=== PATIENT | male | born 1980 | race Two or more races ===

== ENCOUNTER → 2020-05-02 14:00 | Outpatient (BNVA) | payer MEDICARE, MEDICAID, SELFPAY | PROVIDERS: PCP Internal Medicine; Visit Provider Surgery | DX: D36.15 Benign neoplasm of peripheral nerves and autonomic nervous system of abdomen (principal); D36.12 Benign neoplasm of peripheral nerves and autonomic nervous system, upper limb, including shoulder | CPT/HCPCS: 99202 ==

== ENCOUNTER 2020-05-21 07:38 | Day surgery (SDC) | payer MEDICARE, MEDICAID, SELFPAY ==
--- NOTE | 2020-05-14 15:09 | HO.ANESPROP2 ---
HPI - Anesthesia Eval Consult details Narrative: 39yo M for Excision of Neurofibroma of Abdomen & Left Arm x4 PMFSH Past Medical History Medical History Anxiety Depression Elevated blood pressure reading GERD (gastroesophageal reflux disease) High cholesterol Lipoma Family History Family History Father Vertigo Mother Depression Anxiety Diabetes Bipolar 1 disorder Chronic mental illness History of high blood pressure Sister Bipolar 1 disorder Addiction Daughter Autism Maternal Aunt Skin cancer Surgical History Surgical History History of surgery of head History of tonsillectomy Social History Social History Smoking Status: Current every day smoker Tobacco Type: Cigarette Cigarettes Per Day: 10.0 Use of substances other than those prescribed or required for medical reasons: No Advance Directives: No Advance Directives Information Provided: No Advance Directives on File: No Meds Allergies Allergy/AdvReac Type Severity Reaction Status Date / Time latex Allergy Unknown Unknown Verified 05/02/20 14:16 doxycycline [DOXYCYCLINE] AdvReac Intermediate VOMITING, Verified 04/27/20 11:55 PALPATATIONS, Capsule coating on Allergy Unknown nausea and Uncoded 04/17/20 15:01 medications vomiting penicillin Allergy Unknown Unknown Uncoded 04/17/20 15:01 Home Medications Medication Instructions Recorded Confirmed Type omeprazole 20 mg capsule,delayed 20 mg PO DAILY 04/17/20 05/02/20 History release polyethylene glycol 3350 17 17 g PO DAILY 04/17/20 05/02/20 History gram/dose oral powder Exam Exam Date and Time: May 14, 2020 0641 Assessment and Plan Assessment Anesthesia Assessment: Chart Reviewed
[2020-05-16 12:05] VITALS: BMI 32.5
[2020-05-21] VITALS (10 sets, daily range): BP systolic 123–140; BP diastolic 76–90; PULSE 58–82; RESP 16–18; TEMP 36.2–36.6; O2SAT 97–99
[2020-05-21] MEDS: Lactated Ringers 1,000 ML 100 ML IVCONT (08:19)
--- NOTE | 2020-05-21 08:24 | MHC.SHP ---
Pre-Procedural Eval Section A The patient is an INPATIENT: No Changes since office visit: Yes Patient answered all questions; No Cold of Flu in the past 2 weeks, No New Medical Problems and No Changes in Medication The History & Physical has been completed within 30 days and I have reviewed it.: Yes Section B Chief Complaint: Neurofibroma of abdominal wall, Neurofibrom Allergies: Allergies Allergy/AdvReac Type Severity Reaction Status Date / Time latex Allergy Unknown Unknown Verified 05/02/20 14:16 doxycycline [DOXYCYCLINE] AdvReac Intermediate VOMITING, Verified 04/27/20 11:55 PALPATATIONS, Capsule coating on Allergy Unknown nausea and Uncoded 04/17/20 15:01 medications vomiting penicillin Allergy Unknown Unknown Uncoded 04/17/20 15:01 Plan Diagnosis/Plan: Unchanged Patient has been examined and remains a candidate for the planned procedure
[2020-05-21] MEDS: vancomycin HCL 1,000 MG in 0.9 % Sodium Chloride 250 ML 270 MG IV (08:43)
--- NOTE | 2020-05-21 09:26 | PM.OP ---
Brief Operative Note Date of Service: 05/21/20 Pre-op diagnosis: Neurofibromas abdomen x 3 and left arm x 1 Post-op diagnosis: other (Lipoma abdomen x 3, Left arm x 1) Procedure: Excision of lipoma abdomen and left arm x 4 Implants: none Surgeon: Cristino Lainez MD Anesthesia: MAC Polishing Pad Mounter: Ruth Gardner Estimated blood loss (mL): 3 Pathology: other (lipoma x 4) Condition: stable Disposition: PACU
--- NOTE | 2020-05-21 09:28 | P.OP_ITS ---
Operative Note Operative Note Date of Service: 05/21/20 Narrative: Preoperative diagnosis: Fibroma abdomen x3 left arm x1 Postoperative diagnosis: Lipoma abdomen x3, left arm x1 Procedure: Excision of lipoma abdomen x3, left arm x1 Surgeon:Cristino Lainez MD [employer] Cont[employer]mospheric Furnace: JAKE Andino Anesthesia: Mac Indications for procedure: 39-year-old male patient presenting with complaints of painful lumps in the abdomen in arm. He was found to have a palpable small soft tissue mass in the abdomen x3 and left arm x1. Presents for excision. Operative findings patient was found to have soft tissue mass consistent with a lipoma involving the abdomen x3 each measuring approximately 0.5 cm in diameter. Fourth lesion located in the left forearm measured the same size 0.5 cm. All 4 lesions were sent to pathology for further examination. Specimen: Lipoma x4 of abdomen and left arm Complications: None Estimated blood loss: 3 mL Procedure details: Patient was brought to the OR and placed in a supine position. After administering light sedation the patient's abdomen and left arm were prepped with ChloraPrep and draped in a sterile fashion. A surgical time- out was called the consent confirmed. Patient received preoperative antibiotics and Venodyne boots were in place. Local anesthesia consisting of 0.75% Sensorcaine was then infiltrated overall 3 lesions in the abdomen and the 1 lesion in the left arm. Beginning in the right lower quadrant incision was made directly over the palpable lump. This was carried out through subcutaneous tissue. The lump was easily identified just below the dermis. This was sharply dissected from the surrounding subcutaneous tissue and sent to pathology for further examination. Attention was then directed to the right upper quadrant where a 2nd lesion was identified. Incision was made in a transverse fashion directly over the lump. This appeared to be a soft tissue lump again consistent with lipoma. This was excised with the Metzenbaum scissors and sent to pathology for further examination. Third l esion in the left lower quadrant was removed in a similar way with a transverse incision directly over the lesion. Sharp dissection was then used to remove the lesion from the subcutaneous tissue. All 3 lesions were checked for hemostasis and skin closed using a subcuticular 4 0 Polysorb suture. Steri-Strips 2 x 2 gauze and Tegaderm were then applied. A 4th lesion located on the left forearm was then anesthetized with Sensorcaine. A longitudinal incision was made directly over the lesion. The lesion was found just below the dermis. This was then sharply dissected from the surrounding subcutaneous tissue. Lesion was sent to pathology for further examination. Hemostasis was assured using electrocautery. Skin was closed in this lesion using a 4-0 nylon suture x2. Sterile dressings consisting of sterile gauze and Tegaderm were then applied. The patient tolerated the procedure well. Sponge, instrument, needle counts reported as correct. Patient was transferred to PACU in stable condition.
[2020-05-21] MEDS: Ketorolac Tromethamine 15 MG/ML VIAL IVPUSH (09:38)
[2020-05-21] MEDS: ondansetron HCL 4 MG/2 ML VIAL IVPUSH (09:39)
[2020-05-21] MEDS: Acetaminophen 325 MG TABLET 650 MG PO (09:40)
[2020-05-21] MEDS: oxyCODONE HCl Immed Release 5 MG TABLET 10 MG PO (09:40)
[2020-05-21] MEDS: fentaNYL citrate/PF 100 MCG/2 ML VIAL 50 MCG IVPUSH (09:49)
--- NOTE | 2020-05-21 10:56 | HO.POSTANES ---
Post Anesthesia Evaluation Post Anesthesia Evaluation Vital Signs: Vital Signs Temp Pulse Resp BP Pulse Ox 05/21/20 10:25 97.1 F 05/21/20 10:23 61 18 135/90 H 98 05/21/20 10:10 78 18 125/78 98 05/21/20 09:55 58 18 123/85 97 05/21/20 09:49 18 05/21/20 09:40 65 18 134/90 H 97 05/21/20 09:35 67 18 134/90 H 97 05/21/20 09:30 65 16 140/88 H 98 05/21/20 09:25 97.9 F 82 16 139/76 99 05/21/20 08:11 97.5 F 76 16 136/89 97 Anesthesia: General (tiva) Mental Status: Awake Pain Control: Satisfactory Nausea/Vomiting: None Hydration: Adequate Anesthesia-Related Issues: No Anes. Related Issues
== END 2020-05-21 23:59 | disposition home or self-care (01) ==
PROVIDERS: Visit Provider Surgery
PROC: (CPT 11400; principal; 2020-05-21 08:30)
DX: D17.1 Benign lipomatous neoplasm of skin and subcutaneous tissue of trunk (principal); D17.22 Benign lipomatous neoplasm of skin and subcutaneous tissue of left arm; Z88.0 Allergy status to penicillin; Z91.040 Latex allergy status; Z88.8 Allergy status to other drugs, medicaments and biological substances
CPT/HCPCS: 11400 ×3; 88304; J1885; J2250; J2405; J3010; J3370

== ENCOUNTER → 2020-05-29 09:15 | Outpatient (BNVA) | payer MEDICARE, MEDICAID, SELFPAY | PROVIDERS: PCP Internal Medicine; Referring Provider Internal Medicine; Visit Provider Surgery | DX: D17.79 Benign lipomatous neoplasm of other sites (principal) | CPT/HCPCS: 99212 ==

== ENCOUNTER 2020-11-28 13:14 | Outpatient (REF) | payer OTHER, SELFPAY ==
--- NOTE | ~2020-11-28 | XR_ITS ---
EXAMINATION: XR SHOULDER, RIGHT CLINICAL INFORMATION: Right shoulder pain. COMPARISON: Radiographs right shoulder 01/18/2019 TECHNIQUE: Right shoulder is imaged in 4 views. FINDINGS: There is no fracture or dislocation or destructive process. Bony mineralization is normal. The glenohumeral joint is normal. There is some fine mineralization in the distal superior rotator cuff adjacent to the greater tuberosity again noted. No erosive change. The acromioclavicular alignment is normal. XR/XR shoulder RT min 2V IMPRESSION: Calcific tendinosis distal superior rotator cuff.
[2020-11-28 14:28] LABS: MANUAL DIFF FLAG NO
[2020-11-28 14:37] LABS: Basophils Absolute Auto 0.1 X10*3/uL (0.0-0.2); Eosinophils Absolute Auto 0.1 X10*3/uL (0.0-0.4); Eosinophils Percent Auto 2.1 % (0-4); Hematocrit 40.9 % (42-52); Hemoglobin 13.9 g/dl (14.0-18.0); Imm Gran Abs Auto 0.02 X10*3/uL (0.00-0.03); Imm Gran Pct Auto 0.3 % (0.0-0.4); Lymphocytes Absolute Auto 2.8 X10*3/uL (1.2-4.9); Mean Corpuscular Hemoglobin 29.6 pg (27.0-33.0); Mean Corpuscular Volume 87.2 fL (80-98); Mean Platelet Volume 9.1 fL (9.4-12.4); Monocytes Absolute Auto 0.7 X10*3/uL (0.1-1.2); Monocytes Percent Auto 9.7 % (2-11); Neutrophils Absolute Auto 3.1 X10*3/uL (2.0-8.3); Neutrophils Percent Auto 45.9 % (45-73); Platelet Count 250 X10*3/uL (160-400); Red Blood Count 4.69 X10*6/uL (4.60-5.80); Red Cell Distribution Width 13.5 % (11.0-16.0); White Blood Count 6.8 X10*3/uL (4.8-10.8)
[2020-11-28 16:09] LABS: Alanine Aminotransferase 46 U/L (0-40); Albumin Level 3.9 g/dL (3.5-5.0); Alkaline Phosphatase 104 U/L (39-117); Anion Gap 11 (12-20); Aspartate Amino Transferase 39 U/L (5-37); Bilirubin Total 0.4 mg/dL (0.0-1.0); Blood Urea Nitrogen 12 mg/dL (9-16); Calcium 9.5 mg/dL (8.4-10.2); Carbon Dioxide 27 mmol/L (22-29); Chloride 104 mmol/L (96-108); Cholesterol 206 mg/dL; Estimated Glomerular Filt Rate > 60; Glucose Fasting 119 mg/dL (60-99); HDL Cholesterol 23 mg/dL; Potassium 4.3 mmol/L (3.3-5.1); Sodium 138 mmol/L (135-145); Total Protein 7.3 g/dL (6.5-8.0); Triglycerides 438 mg/dL
== END 2020-11-28 13:15 | disposition home or self-care (01) ==
LOC: HO.LAB 13:14
PROVIDERS: Visit Provider Internal Medicine
DX: Z00.00 Encounter for general adult medical examination without abnormal findings (principal); M25.511 Pain in right shoulder; E11.9 Type 2 diabetes mellitus without complications
CPT/HCPCS: 36415; 73030; 80053; 80061; 85025

== ENCOUNTER → 2020-11-29 14:40 | Outpatient (BNVA) | payer OTHER, SELFPAY | PROVIDERS: Visit Provider Orthopaedic Surgery | DX: M75.101 Unspecified rotator cuff tear or rupture of right shoulder, not specified as traumatic (principal); M77.12 Lateral epicondylitis, left elbow | CPT/HCPCS: 99202 ==

== ENCOUNTER 2021-03-21 11:00 | Outpatient (RCR) | payer OTHER, SELFPAY ==
--- NOTE | 2021-01-21 17:23 | MHC.PT.EP ---
[facility] [place] Office [place] Office [place] Office [address] Vasu Ma [address] [phone] F: [phone] F: [phone] F: [phone] F: [phone] Physical Therapy Plan of Care Date of Evaluation: Date of Surgery: Diagnosis: Painful arc syndrome R shoulder Assessment: Pt is a 40 y/o male referred to PT for eval and treat of painful arc syndrome of R shoulder who presents with signs and sx consistent with R shoulder dysfunction resulting in decreased tolerance and ability to perform reaching a high shelf, dressing pullovers, performing fitness activities, reaching his neck and back for hygiene/ dressing as well as carrying objects of weight secondary to decreased R UE strength and ROM, decreased posture, increased tissue tension, presence of neuralfibrosis and pain. Pt is deemed an appropriate candidate to receive skilled PT in order to address his physical limitations to improve his functional ability. Frequency and Duration: The patient will be seen 2 x / wk x 6 wks. Short Term Goals: Initiate HEP with evidence of compliance. improve R shoulder AROM flexion to > 144 degrees; initial: 105 degrees. Abatement Worker Goals: Pt will be able to reach high shelves with managed Sx; initial: unable with R UE. Pt will report able to dress pullovers with managed Sx; initial: 7/10 pain and disability. I with HEP. Treatment Plan: Modalities to reduce pain, spasms and effusion. Manual therapy to restore motion and function. Therapeutic exercise to improve strength and flexibility. Neuromuscular re-education for posture and balance. Therapeutic activities to return to functional activities of daily living. Electronically signed by: Gavino Bell PT Please sign and return to therapist. Thank you for your referral.
== END 2021-10-18 10:52 | disposition home or self-care (01) ==
LOC: HO.PTCHIC 11:00
PROVIDERS: Visit Provider Orthopaedic Surgery
DX: M75.101 Unspecified rotator cuff tear or rupture of right shoulder, not specified as traumatic (principal)
CPT/HCPCS: 97110; 97140; 97161

== ENCOUNTER 2021-05-10 09:22 | Outpatient (REF) | payer OTHER, SELFPAY ==
--- NOTE | ~2021-05-10 | FL_ITS ---
EXAMINATION: XR GI SERIES CLINICAL INFORMATION: Gastroesophageal reflux disease COMPARISON: None TECHNIQUE: Upper GI was performed using thin and thick barium and effervescent granules. FINDINGS: There is mild gastroesophageal reflux. The stomach and duodenum are normal-appearing. No fold thickening, mass, ulcer or stricture is seen. FLUOROSCOPY TIME: 0.7 minutes. DOSE AREA PRODUCT: 7.8 Jacobs per centimeter squared. 19 saved fluoroscopic images. FL/FL upper GI series IMPRESSION: Gastroesophageal reflux otherwise unremarkable exam.
== END 2021-05-10 09:23 | disposition home or self-care (01) ==
LOC: HO.XRAY 09:22
PROVIDERS: Visit Provider Internal Medicine
DX: K21.9 Gastro-esophageal reflux disease without esophagitis (principal)
CPT/HCPCS: 74240

== ENCOUNTER → 2021-09-02 11:29 | Outpatient (BNVA) | payer OTHER, SELFPAY | PROVIDERS: PCP Internal Medicine; Visit Provider Internal Medicine Gastroenterology | DX: R10.9 Unspecified abdominal pain (principal); R79.89 Other specified abnormal findings of blood chemistry; K75.81 Nonalcoholic steatohepatitis (NASH) | CPT/HCPCS: 99212 ==

== ENCOUNTER 2021-09-23 13:35 | Outpatient (REF) | payer OTHER, SELFPAY ==
--- NOTE | ~2021-09-23 | CT_ITS ---
EXAMINATION: CT ENTEROGRAPHY ABDOMEN AND PELVIS WITH CONTRAST CLINICAL INFORMATION: Periumbilical pain COMPARISON: Previous CT of the abdomen and pelvis most recent September 2019 TECHNIQUE: Study performed with oral VoLumen (1350 mL) and 480 mL of water to distend the abdomen. The patient was injected with 85 mL Omnipaque 350 intravenous contrast which was administered without adverse effect. Coronal and sagittal reformatted images were obtained at the technologist's workstation. This CT examination was performed using dose optimization techniques as appropriate, variously including the following: *Automated exposure control *Adjustment of mA and/or kV according to patient size (this includes techniques or standardized protocols for targeted exams where dose is matched to indication/reason for exam; i.e. extremities or head) *Use of iterative reconstruction technique DLP: 555 mGy-cm FINDINGS: GASTROINTESTINAL FINDINGS: Stomach: Well-distended and normal in appearance. Small intestine: Satisfactorily distended and normal in appearance. Large intestine: Well-distended and normal in appearance. No perirectal changes demonstrated. The appendix is normal. Additional findings: No abnormal enhancement of the vasa recta or significant mesenteric or retroperitoneal lymphadenopathy is seen. No abdominal abscess or fistulous tract demonstrated. ABDOMINAL AND PELVIC CT FINDINGS: Liver, gallbladder, biliary tract: The liver is low in attenuation suggestive of fatty infiltration. The liver is otherwise unremarkable. The gallbladder appears contracted. There is no biliary duct dilatation. Pancreas: Normal Spleen: Normal Adrenal glands and kidneys: The adrenal glands are normal. There is a small 5 mm low-attenuation lesion in the mid pole of the right kidney probably representing a cyst. No imaging follow-up is indicated. Kidneys are otherwise unremarkable. Ureters and bladder: Normal Lymphovascular structures: Normal Bones: Normal Lung bases: Normal CT/CT enterography IMPRESSION: Normal enterography exam. Fatty liver. Small right renal cyst.
[2021-09-23] MEDS: iohexoL 350 MG/ML 100 ML INFUS..BTL IV (15:17)
[2021-09-23] MEDS: Sorbitol/Mannit/Xanth Imaging 500 ML LIQUID 1500 ML PO (15:18)
== END 2021-09-23 13:36 | disposition home or self-care (01) ==
LOC: HO.US 13:35
PROVIDERS: PCP Internal Medicine; Visit Provider Internal Medicine Gastroenterology
DX: R10.33 Periumbilical pain (principal); R79.89 Other specified abnormal findings of blood chemistry
CPT/HCPCS: 74177; Q9967

== ENCOUNTER → 2021-12-20 11:27 | Outpatient (BNVA) | payer OTHER, SELFPAY | PROVIDERS: PCP Internal Medicine; Visit Provider Surgery | DX: D17.79 Benign lipomatous neoplasm of other sites (principal) | CPT/HCPCS: 99212 ==

== ENCOUNTER 2022-01-22 09:11 | Day surgery (SDC) | payer OTHER, SELFPAY ==
[2022-01-16 14:27] VITALS: BMI 32.4
--- NOTE | 2022-01-21 08:55 | P.CONAN_ITS ---
Documented by User: Denisa Perez NP 01/21/22 08:56 HPI - Anesthesia Eval Consult details Narrative: 41yo M for Excision Lipoma x4 arm,back and abdominal wall s/p same 04/2020 with TIVA PMFSH Active Problems Active Problems: All Active Problems (Updated 07/22/21 @ 18:19 by Hema Aragon MD) High cholesterol (Acute) Neurofibroma of abdominal wall (Acute) Shoulder pain (Acute) Painful arc syndrome of right shoulder (Acute) Obesity (Acute) Annual physical exam (Acute) Erosive gastritis (Acute) Heartburn (Acute) Right shoulder pain (Acute) Obesity (BMI 30-39.9) (Acute) Smoker (Acute) Elevated LFTs (Acute) Mixed hyperlipidemia (Acute) H/O recurrent pneumonia (Acute) Lipoma (Acute) Depression (Acute) Anxiety (Acute) Elevated blood pressure reading (Acute) GERD (gastroesophageal reflux disease) (Acute) Past Medical History Medical History Anxiety Depression Elevated blood pressure reading Elevated LFTs GERD (gastroesophageal reflux disease) H/O recurrent pneumonia Lipoma Mixed hyperlipidemia Obesity (BMI 30-39.9) Smoker Family History Family History Father Vertigo Mother Depression Anxiety Diabetes Bipolar 1 disorder Chronic mental illness History of high blood pressure Sister Bipolar 1 disorder Addiction Daughter Autism Maternal Aunt Skin cancer Other Substance abuse Surgical History Surgical History (Updated 01/16/22 @ 14:15 by Brandy Myers RN) History of esophagogastroduodenoscopy (EGD) History of surgery of head History of tonsillectomy Hx of colonoscopy S/P excision of lipoma Social History Social History Housing: Apartment Are you a primary companion caregiver to a significant other at home: No Do you presently have visiting nurse or other home services: No Alcohol intake: never Patient Tobacco Use Status: Current everyday Tobacco user Tobacco use type: Cigarette Cigarette Packs Per Day: 0.5 Cigarettes Per Day: 10.0 Years Smoked: 22 Smoked in Last 30 Days: Yes Patient Interested in Nicotine Replacement: No Patient Given Instructions on How to Stop Smoking: Yes Date Education Initiated: 01/16/22 Second Hand Smoke Exposure: Yes Use of substances other than those prescribed or required for medical reasons: No Have you been hit, kicked, punched, or otherwise hurt by someone within the past year? If so, by whom?: No Are you DNR?: No Advance Directives: No Advance Directives Information Provided: Yes Advance Directives on File: No Recently lost weight without trying: No Eating poorly because of decreased appetite: No Nutrition Risks: No Nutritional Risk Current occupational status: employed Current occupation: [employer] worker Meds Allergies Allergy/AdvReac Type Severity Reaction Status Date / Time latex Allergy Unknown Unknown Verified 12/20/21 11:29 doxycycline [DOXYCYCLINE] AdvReac Intermediate VOMITING, Verified 12/20/21 11:29 PALPATATIONS, Capsule coating on Allergy Unknown nausea and Uncoded 12/20/21 11:29 medications vomiting penicillin Allergy Unknown Unknown Uncoded 12/20/21 11:29 Home Medications Medication Instructions Recorded Confirmed Last Taken Type lorazepam 1 mg tablet 1 mg PO BID PRN Anxiety 01/16/22 01/16/22 01/22/22 History Exam Exam Date and Time: January 21, 2022 0855 Height,Weight and Vital Signs: Height 5 ft 10 in Weight 102.512 kg Assessment and Plan Assessment Anesthesia Assessment: Chart Reviewed Documented by User: Matthieu Almaguer MD 01/22/22 10:59 ON LICENSE OF [facility] Past Medical History Medical History Anxiety Depression Elevated blood pressure reading Elevated LFTs GERD (gastroesophageal reflux disease) H/O recurrent pneumonia Lipoma Mixed hyperlipidemia Obesity (BMI 30-39.9) Smoker Family History Family History Father Vertigo Mother Depression Anxiety Diabetes Bipolar 1 disorder Chronic mental illness History of high blood pressure Sister Bipolar 1 disorder Addiction Daughter Autism Maternal Aunt Skin cancer Other Substance abuse Family history of problems with anesthesia: No Surgical History Surgical History (Updated 01/16/22 @ 14:15 by Brandy Myers RN) History of esophagogastroduodenoscopy (EGD) History of surgery of head History of tonsillectomy Hx of colonoscopy S/P excision of lipoma History of Problems with Anesthesia: No Social History Social History Housing: Apartment Are you a primary companion caregiver to a significant other at home: No Do you presently have visiting nurse or other home services: No Alcohol intake: never Patient Tobacco Use Status: Current everyday Tobacco user Tobacco use type: Cigarette Cigarette Packs Per Day: 0.5 Cigarettes Per Day: 10.0 Years Smoked: 22 Smoked in Last 30 Days: Yes Patient Interested in Nicotine Replacement: No Patient Given Instructions on How to Stop Smoking: Yes Date Education Initiated: 01/16/22 Second Hand Smoke Exposure: Yes Use of substances other than those prescribed or required for medical reasons: No Have you been hit, kicked, punched, or otherwise hurt by someone within the past year? If so, by whom?: No Are you DNR?: No Advance Directives: No Advance Directives Information Provided: Yes Advance Directives on File: No Recently lost weight without trying: No Eating poorly because of decreased appetite: No Nutrition Risks: No Nutritional Risk Current occupational status: employed Current occupation: [employer] worker Meds Allergies Allergy/AdvReac Type Severity Reaction Status Date / Time latex Allergy Unknown Unknown Verified 12/20/21 11:29 doxycycline [DOXYCYCLINE] AdvReac Intermediate VOMITING, Verified 12/20/21 11:29 PALPATATIONS, Capsule coating on Allergy Unknown nausea and Uncoded 12/20/21 11:29 medications vomiting penicillin Allergy Unknown Unknown Uncoded 12/20/21 11:29 Home Medications Medication Instructions Recorded Confirmed Last Taken Type lorazepam 1 mg tablet 1 mg PO BID PRN Anxiety 01/16/22 01/16/22 01/22/22 History Exam Airway Mallampati Class: II TM Dist: >3cm Neck ROM: Full Heart: rrr Lungs: clear Assessment and Plan Final Anesthetic Review Family History of Problems with Anesthesia: No History of Problems with Anesthesia: No NPO: Yes ASA Class: II Final Preanesthetic Review: No Changes in Pt Med Stat, Meds/Allgs Chart Reviewed, Consent Obtained/Reviewed and Anes Risks/Benef Reviewed Patient Risk: Intermediate Procedure Risk: Low Anesthetic Plan Anesthetic Plan: GA Disposition: Standard PACU
[2022-01-22] VITALS (13 sets, daily range): BP systolic 112–155; BP diastolic 68–96; PULSE 60–84; RESP 13–22; TEMP 36.2–36.5; O2SAT 95–100; BMI 32.5
--- NOTE | 2022-01-22 09:36 | MHC.SHP ---
Pre-Procedural Eval Section A Date of Service: 01/22/22 The patient is an INPATIENT: No Changes since office visit: Yes Patient answered all questions; No Cold of Flu in the past 2 weeks, No New Medical Problems and No Changes in Medication The History & Physical has been completed within 30 days and I have reviewed it.: Yes Section B Chief Complaint: lipomas Allergies: Allergies Allergy/AdvReac Type Severity Reaction Status Date / Time latex Allergy Unknown Unknown Verified 12/20/21 11:29 doxycycline [DOXYCYCLINE] AdvReac Intermediate VOMITING, Verified 12/20/21 11:29 PALPATATIONS, Capsule coating on Allergy Unknown nausea and Uncoded 12/20/21 11:29 medications vomiting penicillin Allergy Unknown Unknown Uncoded 12/20/21 11:29 Plan Diagnosis/Plan: Unchanged I have reviewed the history and physical and performed a pertinent physical examination on my patient. No changes have occurred unless specified.
[2022-01-22] MEDS: Lactated Ringers 1,000 ML 100 ML IVCONT (10:01)
[2022-01-22] MEDS: vancomycin HCL 1,000 MG in 0.9 % Sodium Chloride 250 ML 270 MG IV (10:02)
--- NOTE | 2022-01-22 12:17 | W.PM.OPN ---
Operative Note Operative Note Date of Service: 01/22/22 Narrative: Preoperative diagnosis: Multiple lipoma right abdomen and flank Postoperative diagnosis: same Procedure: excision of multiple lipoma right flank (5 ) Surgeon: Cristino Lainez MD Graphite Grinder: no physician Anesthesia: general LMA Indications for procedure: 41-year-old male patient with history of previous lipomas involving his trunk and upper extremities now with 5 symptomatic lipomas involving the right abdomen and right flank which he has requested excision. Each measures approximately 1.5 cm in diameter by palpation. they are located mainly in the right upper quadrant abdomen and right flank with 4 in the abdomen and 1 in the flank. Operative findings: 1.5 cm lipomas involving the right upper quadrant abdomen x4 and right flank x1 Specimen: lipoma x5 abdomen and flank right Estimated blood loss: 5 mL Complications: none Procedure details: patient was brought to the OR placed in a supine position. After administering general anesthesia he was placed in a left lateral decubitus position. skin was prepped with ChloraPrep and draped in a sterile fashion. A surgical time-out was called the consent confirmed . Local anesthesia consisting of 0.5% Sensorcaine was then infiltrated over each lipoma. Transverse incisions were then made starting in the right upper quadrant the 4 lipomas in the right upper quadrant were excised using the electrocautery and blunt dissection. Each was passed off table and sent to pathology for further examination. Attention was then directed to the right flank were again incision was made over the lipoma down through subcutaneous tissue and excised using 1 sharp dissection. Dermis was closed over each incision using interrupted 3-0 Polysorb suture. Skin was then closed using a running subcuticular 4-0 Polysorb suture over each incision. Steri-Strips, 2 x 2 gauze and Tegaderm were then applied. The patient tolerated the procedure well. Sponge, instrument, and needle counts reported as correct. Patient was transferred to PACU in stable condition.
[2022-01-22] MEDS: oxyCODONE HCl Immed Release 5 MG TABLET PO (12:36)
[2022-01-22] MEDS: fentaNYL citrate/PF 100 MCG/2 ML VIAL 25 MCG IVPUSH ×4 (12:37→12:52)
[2022-01-22] MEDS: HYDROmorphone HCl 0.5 MG/0.5 ML SYRINGE IVPUSH ×2 (12:57→13:02)
[2022-01-22] MEDS: ondansetron HCL 4 MG/2 ML VIAL IVPUSH (13:04)
== END 2022-01-22 14:43 | disposition home or self-care (01) ==
PROVIDERS: PCP Internal Medicine; Visit Provider Surgery
PROC: (CPT 22902; principal; 2022-01-22 10:50)
DX: D17.5 Benign lipomatous neoplasm of intra-abdominal organs (principal); D17.1 Benign lipomatous neoplasm of skin and subcutaneous tissue of trunk; R03.0 Elevated blood-pressure reading, without diagnosis of hypertension; E78.5 Hyperlipidemia, unspecified; K21.9 Gastro-esophageal reflux disease without esophagitis; R79.89 Other specified abnormal findings of blood chemistry; F41.8 Other specified anxiety disorders; E66.9 Obesity, unspecified; Z68.33 Body mass index [BMI] 33.0-33.9, adult; Z79.899 Other long term (current) drug therapy; Z91.041 Radiographic dye allergy status; Z88.0 Allergy status to penicillin; Z88.1 Allergy status to other antibiotic agents; F17.210 Nicotine dependence, cigarettes, uncomplicated; Z98.890 Other specified postprocedural states
CPT/HCPCS: 22902 ×4; 21930; 88304; J1100; J1170; J2250; J2405; J2795; J3010; J3370

== ENCOUNTER → 2022-02-18 11:29 | Outpatient (BNVA) | payer OTHER, SELFPAY | PROVIDERS: PCP Internal Medicine; Visit Provider Surgery | DX: Z48.817 Encounter for surgical aftercare following surgery on the skin and subcutaneous tissue (principal); Z87.2 Personal history of diseases of the skin and subcutaneous tissue | CPT/HCPCS: 99211 ==

== ENCOUNTER 2022-03-27 18:21 | Emergency (ER) | payer OTHER, SELFPAY ==
--- NOTE | ~2022-03-27 | XR_ITS ---
EXAMINATION: Left third toe CLINICAL INFORMATION: Injury. COMPARISON: None TECHNIQUE: 3 views of left third toe XR/XR toe LT min 2V FINDINGS/IMPRESSION: There is no displaced fracture. There is no dislocation. No focal bone destruction or abnormal periosteal reaction. If pain persists consider follow-up study.
[2022-03-27 19:49] VITALS: BP 145/76; PULSE 83; RESP 20; O2SAT 98; BMI 31.2
== END 2022-03-28 00:39 | disposition left against medical advice (07) ==
LOC: HO.ED 03-28 00:26
PROVIDERS: Emergency Provider Emergency Medicine; PCP Internal Medicine
DX: M79.672 Pain in left foot (principal)
CPT/HCPCS: 73660; 99281; 99283

== ENCOUNTER → 2022-05-02 11:14 | Outpatient (BNVA) | payer OTHER, SELFPAY | PROVIDERS: PCP Internal Medicine; Visit Provider Internal Medicine Gastroenterology | DX: K52.9 Noninfective gastroenteritis and colitis, unspecified (principal) | CPT/HCPCS: Q3014 ==

== ENCOUNTER 2022-05-29 09:20 | Outpatient (REF) | payer OTHER, SELFPAY ==
[2022-05-29 09:45] LABS: MANUAL DIFF FLAG NO
[2022-05-29 10:26] LABS: Appearance Urine Clear; Color Urine Yellow; Glucose Urine UA Negative (Negative); Leukocyte Esterase Urine Negative (Negative); Nitrite Urine Negative (Negative); PH 5.5 (5.0-9.0); Urine Blood Negative (Negative); Urine Ketones Trace mg/dL (Negative); Urine Protein Negative (Neg-Trace)
[2022-05-29 10:36] LABS: Basophils Absolute Auto 0.1 X10*3/uL (0.0-0.2); Basophils Percent Auto 0.8 % (0-2); Eosinophils Absolute Auto 0.2 X10*3/uL (0.0-0.4); Eosinophils Percent Auto 2.3 % (0-4); Hemoglobin 13.4 g/dl (14.0-18.0); Imm Gran Abs Auto 0.01 X10*3/uL (0.00-0.03); Imm Gran Pct Auto 0.2 % (0.0-0.4); Lymphocytes Absolute Auto 3.3 X10*3/uL (1.2-4.9); Lymphocytes Percent Auto 51.3 % (20-40); Mean Corpuscular HGB Conc 34.4 g/dl (31.0-36.0); Mean Corpuscular Hemoglobin 29.7 pg (27.0-33.0); Mean Corpuscular Volume 86.5 fL (80.0-98.0); Mean Platelet Volume 9.3 fL (9.4-12.4); Monocytes Absolute Auto 0.5 X10*3/uL (0.1-1.2); Monocytes Percent Auto 8.5 % (2-11); Neutrophils Absolute Auto 2.4 x10*3/uL (2.0-8.3); Neutrophils Percent Auto 36.9 % (45-73); Platelet Count 264 X10*3/uL (160-400); Red Blood Count 4.51 X10*6/uL (4.60-5.80); Red Cell Distribution Width 12.5 % (11.0-16.0); White Blood Count 6.4 X10*3/uL (4.8-10.8)
[2022-05-29 11:09] LABS: Ferritin 135 ng/mL (20-250); Vitamin D 25-OH Total 42.3 ng/mL (>30)
[2022-05-29 11:44] LABS: Estimated Average Glucose 123 mg/dL; Hemoglobin A1c % 5.9 %
[2022-05-29 12:02] LABS: Alanine Aminotransferase 32 U/L (0-40); Alkaline Phosphatase 98 U/L (39-117); Anion Gap 11 (12-20); Aspartate Amino Transferase 29 U/L (5-37); Bilirubin Total 0.5 mg/dL (0.0-1.0); Blood Urea Nitrogen 8 mg/dL (9-16); C Reactive Protein 0.23 mg/dL (< or = 0.50); Calcium 9.1 mg/dL (8.4-10.2); Carbon Dioxide 27 mmol/L (22-29); Chloride 105 mmol/L (96-108); Estimated Glomerular Filt Rate > 60; Glucose Random 91 mg/dL (60-115); Potassium 4.2 mmol/L (3.3-5.1); Prostate Specific Antigen Scr 0.81 ng/mL (<0.05-4.0); Sodium 139 mmol/L (135-145); TSH reflex Free T4 1.25 uIU/mL (0.32-4.0)
[2022-05-29 12:15] LABS: Vitamin B12 844 pg/mL (200-900)
[2022-05-29 12:19] LABS: Folate 14.2 ng/mL (> or = 4.0)
[2022-05-29 12:36] LABS: HBS Num1 0.45 mIU/mL (0-7.99); HBc Num1 0.09 S/CO (0.00-0.79); HBsAGNum1 0.31 S/CO (0.00-0.99); Hepatitis B Core Antibody Nonreactive (Nonreactive); Hepatitis B Surface Antigen Negative (Negative); ~HepC Num1 0.08 S/CO (0.00-0.79); ~Hepatitis B Surface Antibody NONREACTIVE (Nonreactive); ~Hepatitis C Antibody Nonreactive (Nonreactive)
[2022-05-30 08:33] LABS: Hepatitis A Antibody IgM 0.22 Index (0-0.79); ~Hepatitis A Antibody IgM Nonreactive (Nonreactive)
[2022-06-03 09:54] LABS: Vitamin C 0.8 mg/dL (0.2-2.1)
[2022-06-04 13:29] LABS: Transglutaminase Ab IgG <1.0 U/mL; Transglutaminase IgA <1.0 U/mL
[2022-06-04 14:18] LABS: Zinc 69 mcg/dL (60-130)
== END 2022-05-29 09:21 | disposition home or self-care (01) ==
LOC: HO.LAB 09:20
PROVIDERS: Absent Provider Internal Medicine; PCP Internal Medicine; Visit Provider Internal Medicine Gastroenterology
DX: Z00.00 Encounter for general adult medical examination without abnormal findings (principal); Z12.5 Encounter for screening for malignant neoplasm of prostate; R10.33 Periumbilical pain; G89.29 Other chronic pain; K75.81 Nonalcoholic steatohepatitis (NASH); R73.9 Hyperglycemia, unspecified; I10 Essential (primary) hypertension; E78.00 Pure hypercholesterolemia, unspecified
CPT/HCPCS: 36415; 80053; 81003; 82180; 82306; 82607; 82728; 82746; 83036; 84153; 84443; 84630; 85025; 86140; 86364; 86704; 86706; 86709; 86803; 87340

== ENCOUNTER → 2022-09-26 10:46 | Outpatient (BNVA) | payer OTHER, SELFPAY | PROVIDERS: PCP Internal Medicine; Visit Provider Internal Medicine Gastroenterology | DX: R21 Rash and other nonspecific skin eruption (principal) | CPT/HCPCS: Q3014 ==

== ENCOUNTER 2024-06-19 19:48 | Emergency (ER) | payer MEDICARE, SELFPAY ==
--- NOTE | ~2024-06-19 | XR_ITS ---
CLINICAL HISTORY: wound to right great toe 3 view right 1st toe Comparison: None Findings: Small calcific density dorsal to the interphalangeal joint is nonspecific on the lateral image. Appears old/chronic with sclerosis. Differential considerations include ligament calcification. Calcific foreign body considered less likely. No acute displaced fracture. No dislocation. Soft tissue swelling is diffuse and nonspecific. No underlying bony destructive changes. Mild osteoarthritis in the [id number]. Midfoot is mostly obscured. Likely accessory ossicle adjacent to talonavicular articulation. IMPRESSION: 1. Nonspecific soft tissue swelling of the great toe. No underlying bony destructive changes. 2. mild osteoarthritis in the [id number]. 3. Nonspecific calcification dorsal to the interphalangeal joint. This document has been electronically signed by: Carlos Jama MD on 06/19/2024 20:43:10
[2024-06-19 19:53] VITALS: BP 134/78; PULSE 72; RESP 16; TEMP 36.8; O2SAT 99; BMI 31.2
[2024-06-19 20:30] LABS: MANUAL DIFF FLAG NO
[2024-06-19 20:31] LABS: Basophils Percent Auto 0.5 % (0-2); Eosinophils Absolute Auto 0.2 X10*3/uL (0.0-0.4); Eosinophils Percent Auto 2.5 % (0-4); Hematocrit 38.1 % (42.0-52.0); Hemoglobin 12.9 g/dl (14.0-18.0); Imm Gran Abs Auto 0.01 X10*3/uL (0.00-0.03); Imm Gran Pct Auto 0.1 % (0.0-0.4); Lymphocytes Absolute Auto 3.1 X10*3/uL (1.2-4.9); Lymphocytes Percent Auto 37.7 % (20-40); Mean Corpuscular HGB Conc 33.9 g/dl (31.0-36.0); Mean Corpuscular Hemoglobin 29.9 pg (27.0-33.0); Mean Corpuscular Volume 88.2 fL (80.0-98.0); Mean Platelet Volume 8.8 fL (9.4-12.4); Monocytes Absolute Auto 0.7 X10*3/uL (0.1-1.2); Monocytes Percent Auto 8.1 % (2-11); Neutrophils Absolute Auto 4.2 x10*3/uL (2.0-8.3); Neutrophils Percent Auto 51.1 % (45-73); Platelet Count 241 X10*3/uL (160-400); Red Blood Count 4.32 X10*6/uL (4.60-5.80); Red Cell Distribution Width 12.5 % (11.0-16.0); White Blood Count 8.1 X10*3/uL (4.8-10.8)
[2024-06-19 20:55] LABS: Albumin Level 3.9 g/dL (3.5-5.0); Alkaline Phosphatase 118 U/L (39-117); Anion Gap 12 (12-20); Aspartate Amino Transferase 34 U/L (5-37); Bilirubin Total 0.5 mg/dL (0.0-1.0); Blood Urea Nitrogen 14 mg/dL (9-16); C Reactive Protein 0.59 mg/dL (< or = 0.50); Calcium 9.2 mg/dL (8.4-10.2); Carbon Dioxide 25 mmol/L (22-29); Chloride 108 mmol/L (96-108); Creatinine Clr Calc Pharmacy 132.3; Estimated Glomerular Filt Rate > 60; Glucose Random 129 mg/dL (60-115); Potassium 4.4 mmol/L (3.3-5.1); Sodium 141 mmol/L (135-145); Total Protein 7.5 g/dL (6.5-8.0)
[2024-06-19 21:11] LABS: Alanine Aminotransferase 30 U/L (0-40)
[2024-06-19 22:31] LABS: Erythrocyte Sedimentation Rate 17 MM/HR (0-15)
[2024-06-20 01:06] VITALS: BP 121/87; PULSE 69; RESP 14; TEMP 36.4; O2SAT 96
--- NOTE | 2024-06-20 03:37 | ED_ITS ---
HPI - Extremity Problem General Chief complaint: Extremity Problem Stated complaint: R foot/ankle swelling Time Seen by Provider: 06/20/24 03:31 Source: patient Mode of arrival: ambulatory Limitations: no limitations History of Present Illness ED Provider: Dr. Naya Khalil HPI Narrative: Patient comes to emergency room complaining of pain in the plantar aspect of the great toe on the right foot. Patient states there was a blister, popped it, no seems infected. Denies fever chills Related Data Home Medications ?Medication ?Instructions ?Recorded ?Confirmed lorazepam 1 mg tablet 1 mg PO BID PRN Anxiety 01/16/22 01/16/22 naproxen sodium 220 mg capsule 220 mg PO BID PRN 09/26/22 (Aleve) nystatin 100,000 unit/gram topical topical BID 09/26/22 cream Previous Rx's ?Medication ?Instructions ?Recorded pantoprazole 40 mg tablet,delayed 40 mg PO BID #180 tabs 08/18/23 release ibuprofen 600 mg tablet 600 mg PO Q8H PRN fever or pain 06/20/24 #20 tabs sulfamethoxazole 800 1 tab PO BID #13 tabs 06/20/24 mg-trimethoprim 160 mg tablet (Bactrim DS) Allergies Allergy/AdvReac Type Severity Reaction Status Date / Time latex Allergy Unknown Unknown Verified 06/19/24 19:55 doxycycline [DOXYCYCLINE] AdvReac Intermediate VOMITING, Verified 06/19/24 19:55 PALPATATIONS, Capsule coating on Allergy Unknown nausea and Uncoded 06/19/24 19:55 medications vomiting penicillin Allergy Unknown Unknown Uncoded 06/19/24 19:55 Review of Systems 2 Review of Systems: Constitutional : No Weight loss, No Fever, No Chills, No Night Sweats, No Fatigue, No Malaise ENT/Mouth : No Hearing loss, No Ear Pain, No Nasal Congestion, No Sinus Pain, No Hoarseness, No sore throat, No Rhinorrhea, No Swallowing Difficulty Eyes: No Eye Pain, No Swelling, No Redness, No Foreign Body, No Discharge, No Vision Changes Cardiovascular : No Chest Pain, No SOB, No Dyspnea on Exertion, No Orthopnea, No Edema, No Palpitations Respiratory : No Cough, No Sputum, No Wheezing, No Smoke Exposure, No Dyspnea Gastrointestinal : No Nausea, No Vomiting, No Diarrhea, No Constipation, No abdominal Pain, No Hematochezia, No Melena Genitourinary : no irregular bleeding, No Dysuria, No Urinary Frequency, No Hematuria, No Urinary Incontinence, No Urgency, No Flank Pain, No Urinary Flow Changes, No Hesitancy Musculoskeletal : No joint pain, No Myalgias, No Joint Swelling Skin : Complaining of an infected blister on the foot Neuro : No Weakness, No Numbness, No Paresthesias, No Loss of Consciousness, No Dizziness, No Headache Psych : No Anxiety/Panic, No Depression, No SI/HI/AH/VH, No Social Issues, Heme/Lymph: No Bruising, No Bleeding,No Lymphadenopathy Endocrine : No Polyuria, No Polydipsia, No Temperature Intolerance [facility] Past Medical History Medical History Obesity (BMI 30-39.9) Smoker Elevated LFTs Mixed hyperlipidemia H/O recurrent pneumonia Lipoma Depression Anxiety Elevated blood pressure reading GERD (gastroesophageal reflux disease) Surgical History History of esophagogastroduodenoscopy (EGD) History of excision of mass (01/22/22) History of surgery of head History of tonsillectomy Hx of colonoscopy S/P excision of lipoma Family History Family History Father Vertigo Mother Depression Anxiety Diabetes Bipolar 1 disorder Chronic mental illness History of high blood pressure Sister Bipolar 1 disorder Addiction Daughter Autism Maternal Aunt Skin cancer Other Substance abuse Social History Social History Housing: Apartment Are you a primary home care nurse to a significant other at home: No Do you presently have visiting nurse or other home services: No Alcohol intake: never Comment: soreness Patient Tobacco Use Status: Current everyday Tobacco user Tobacco use type: Cigarette Cigarette Packs Per Day: 0.5 Cigarettes Per Day: 10.0 Years Smoked: 22 Second Hand Smoke Exposure: Yes Advance Directives: No Advance Directives Information Provided: Yes Do you have a plan to hurt others: No Plan Current occupational status: employed 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 Oriented X3. No acute distress. Eyes: Pupils equal, round and reactive to light. ENT: Pharynx normal. Neck: Normal inspection. Neck supple. No lymph nodes noted. No crepitus CVS: Normal heart rate and rhythm. Pulses normal. Normal S1 and S2 Respiratory: No respiratory distress. Breath sounds normal. No Wheezing. No rales Abdomen: Soft and nontender. No rigidity. No distention. Skin: Skin warm and dry. Normal skin color. Normal skin turgor. Extremities: No lower extremity edema. No Lacerations. No Rash, the blister already popped, there seems to be a little erythema in the plantar aspect of the greater toe, no pus drainage. Very mild erythema. Neuro: Oriented X 3. No motor deficit. No sensory deficit. Moving all extremities. No slurred speech. CN 2 through 12 grossly intact Psych: calm, cooperative, normal affect Medical Decision Making Medical Decision Making [facility] Narrative: My interpretation of x-ray, no bony changes, osteomyelitis not suspected. Patient was given the 1st dose of p.o. double-strength Bactrim Lab Data [facility] Lab Attestation statement: I reviewed the patient's lab results. 06/19/24 20:24 06/19/24 20:24 Labs: Lab Results 06/19/24 Range/Units 20:24 WBC 8.1 (4.8-10.8) X10*3/uL RBC 4.32 L (4.60-5.80) X10*6/uL Hgb 12.9 L (14.0-18.0) g/dl Hct 38.1 L (42.0-52.0) % MCV 88.2 (80.0-98.0) fL MCH 29.9 (27.0-33.0) pg MCHC 33.9 (31.0-36.0) g/dl RDW 12.5 (11.0-16.0) % Plt Count 241 (160-400) X10*3/uL MPV 8.8 L (9.4-12.4) fL Immature Gran % (Auto) 0.1 (0.0-0.4) % Neut % (Auto) 51.1 (45-73) % Lymph % (Auto) 37.7 (20-40) % [place] % (Auto) 8.1 (2-11) % Eos % (Auto) 2.5 (0-4) % Baso % (Auto) 0.5 (0-2) % Lymph # (Auto) 3.1 (1.2-4.9) X10*3/uL [place] # (Auto) 0.7 (0.1-1.2) X10*3/uL Eos # (Auto) 0.2 (0.0-0.4) X10*3/uL Baso # (Auto) 0.0 (0.0-0.2) X10*3/uL Abs Immat Gran (auto) 0.01 (0.00-0.03) X10*3/uL Absolute Neuts (auto) 4.2 (2.0-8.3) x10*3/uL Absolute Nucleated RBC 0.000 (0.0-0.012) X10*3/uL Nucleated RBC % (auto) 0.0 (0.0-0.2) /100WBC ESR 17 H (0-15) MM/HR Sodium 141 (135-145) mmol/L Potassium 4.4 (3.3-5.1) mmol/L Chloride 108 (96-108) mmol/L Carbon Dioxide 25 (22-29) mmol/L Anion Gap 12 (12-20) BUN 14 (9-16) mg/dL Creatinine 0.83 (0.5-1.4) mg/dL Estim Creat Clear Calc 132.3 Estimated GFR > 60 Random Glucose 129 H (60-115) mg/dL Calcium 9.2 (8.4-10.2) mg/dL Total Bilirubin 0.5 (0.0-1.0) mg/dL AST 34 (5-37) U/L ALT 30 (0-40) U/L Alkaline Phosphatase 118 H (39-117) U/L C-Reactive Protein 0.59 H (< or = 0.50) mg/dL Total Protein 7.5 (6.5-8.0) g/dL Albumin 3.9 (3.5-5.0) g/dL Independent Interpretation I performed an independent interpretation of an: Plain X-Ray Radiology Impression Discussion of test interpretation with radiology: I have reviewed the radiologist's reading. Radiologist Impression: Findings: Small calcific density dorsal to the interphalangeal joint is nonspecific on the lateral image. Appears old/chronic with sclerosis. Differential considerations include ligament calcification. Calcific foreign body considered less likely. No acute displaced fracture. No dislocation. Soft tissue swelling is diffuse and nonspecific. No underlying bony destructive changes. Mild osteoarthritis in the [id number]. Midfoot is mostly obscured. Likely accessory ossicle adjacent to talonavicular articulation. IMPRESSION: 1. Nonspecific soft tissue swelling of the great toe. No underlying bony destructive changes. 2. mild osteoarthritis in the [id number]. 3. Nonspecific calcification dorsal to the interphalangeal joint. Discharge Plan Discharge Clinical Impression: Infected blister of foot Patient Disposition: Home, Self-Care Instructions: Blister (ED) Additional Instructions: Please follow-up with your primary care physician tomorrow. If you have any worsening or new symptoms, please return to the emergency room or call 911 Prescriptions: New sulfamethoxazole-trimethoprim [Bactrim DS] 800-160 mg tablet 1 tab PO BID Qty: 13 0RF ibuprofen 600 mg tablet 600 mg PO Q8H PRN (Reason: fever or pain) Qty: 20 0RF No Action pantoprazole 40 mg tablet,delayed release (DR/EC) 40 mg PO BID Qty: 180 0RF lorazepam 1 mg Tablet 1 mg PO BID PRN (Reason: Anxiety) nystatin 100,000 unit/gram cream topical BID naproxen sodium [Aleve] 220 mg capsule 220 mg PO BID PRN Stand Alone Forms: Work/School Release Print Language: Kyrgyz
[2024-06-20 03:58] VITALS: BP 103/60; PULSE 59; RESP 16; TEMP 36.3; O2SAT 95
[2024-06-20] MEDS: Ibuprofen 600 MG TABLET PO (04:05)
[2024-06-20] MEDS: Sulfamethox/Trimeth 800/160 TABLET 1 TAB PO (04:06)
[2024-06-20 04:09] VITALS: BP 103/60; PULSE 59; RESP 16; TEMP 36.3; O2SAT 95
== END 2024-06-20 04:11 | disposition home or self-care (01) ==
PROVIDERS: Physician Assistant Medical; Emergency Provider Emergency Medicine; PCP Internal Medicine
DX: S90.422A Blister (nonthermal), left great toe, initial encounter (principal); X58.XXXA Exposure to other specified factors, initial encounter; Y93.9 Activity, unspecified; Y92.9 Unspecified place or not applicable; Y99.9 Unspecified external cause status; M79.674 Pain in right toe(s)
CPT/HCPCS: 36415; 73660; 80053; 85025; 85652; 86140; 99283; 99284

== ENCOUNTER → 2024-06-19 19:55 | Outpatient (BNV) | payer OTHER, SELFPAY | PROVIDERS: PCP Internal Medicine; Visit Provider Radiology Neuroradiology | DX: S90.931A Unspecified superficial injury of right great toe, initial encounter (principal) | CPT/HCPCS: 73660 ==